=== PATIENT | female | born 1960 | race Two or more races ===

== ENCOUNTER 2018-05-04 21:28 | Emergency (ER) | payer OTHER ==
--- NOTE | 2018-05-04 22:25 | ED Physician Chart ---
ED Chief Complaint/HPI - Patient Information Date Seen:: 05/04/18 Time Seen:: 22:16 Chief Complaint:: numbness rt hand History of Present Illness:: 58 yr old female with hx fall 5 mos ago with c/o of heaadache and head shakes Allergies:: Allergies Allergy/AdvReac Type Severity Reaction Status Date / Time No Known Allergies Allergy Verified 05/04/18 22:08 Vitals:: Vital Signs - 8 hr 05/04/18 21:35 Temp 98.1 F HR 87 RR 18 BP 156/114 O2 Sat % 96 ED Review of Systems - Review of Systems General/Constitutional: No fever Skin: No skin lesions Head: Headache Eyes: No loss of vision ENT: No earache Neck: No swelling Cardio Vascular: No chest pain Pulmonary: No SOB GI: No nausea Musculoskeletal: Bone or joint pain Endocrine: No polyuria Psychiatric: No prior psych history Hematopoietic: No bruising Allergic/Immuno: No urticaria Neurological: No syncope ED Past Medical History - Past Medical History Past Medical History: No significant medical hx Family Medical History - Family Member Mother History Unknown: Yes ED Physical Exam - Physical Examination General/Constitutional: Well-developed, well-nourished Other Gen/Cons comments:: very anxious female Head: Atraumatic Eyes: Lids, conjuctiva normal Skin: Nl inspection Neck: No JVD Respiratory: Nl effort/Exclusion Cardio Vascular: RRR Other Extremities comments:: rt wrist tend rt thumb tenderness Neuro/Psych: Alert/oriented ED Assessment - Assessment General Assessment: anxiety headache sprain ED Septic Shock - . Is Septic Shock (SBP<90, OR Lactate>4 mmol\L) present?: No - <6hrs of presentation: Vital Signs: Vital Signs - 8 hr 05/04/18 21:35 Temp 98.1 F HR 87 RR 18 BP 156/114 O2 Sat % 96 ED Reassessment (Disposition) - Reassessment Reassessment:: anxiety headache sprain - Patient Disposition Discharge/Transfer:: Home Condition at Disposition:: Stable
[2018-05-04 22:31] LABS: % BASOPHILS 0.5 % (0.0-2.0); % EOSINOPHILS 2.1 % (0.0-5.0); % LYMPHOCYTES 28.5 % (20.0-50.0); % MONOCYTES 8.7 % (2.0-10.0); % NEUTROPHILS 60.2 % (40.0-80.0); EOSINOPHILE ABSOLUTE 0.2 Th/cmm (0.1-0.4); HEMATOCRIT 43.8 % (41.0-60); HEMOGLOBIN 14.3 gm/dL (12-16); LYMPHOCYTE ABSOLUTE 2.3 Th/cmm (1.5-3.0); MEAN CELL VOLUME 86.9 fl (81-100); MEAN CORPUSCULAR HEMOGLOBIN 28.4 pg (27.0-31.0); MEAN CORPUSCULAR HGB CONC 32.7 pg (28.0-36.0); MEAN PLATELET VOLUME 7.8 fl; MONOCYTE ABSOLUTE 0.7 Th/cmm (0.3-1.0); PLATELET COUNT 295 Th/cmm (150-400); RED BLOOD COUNT 5.04 Mil/cmm (3.80-5.10); RED CELL DISTRIBUTION WIDTH 12.5 % (11.5-20.0); WHITE BLOOD COUNT 8.2 Th/cmm (4.8-10.8)
[2018-05-04 22:47] LABS: ALB/GLOB RATIO 1.4 (1.0-1.8); ALBUMIN 4.2 gm/dL (3.7-5.3); ALKALINE PHOSPHATASE 63 U/L (34-104); ANION GAP 11.9 (7.0-16.0); BILIRUBIN,TOTAL 0.3 mg/dL (0.3-1.0); BUN - UREA NITROGEN 11 mg/dL (7-25); CALCIUM SERUM 9.3 mg/dL (8.6-10.3); CARBON DIOXIDE 24.9 mEq/L (21.0-31.0); CHLORIDE 106 mEq/L (98-107); CREATININE - SERUM 1.1 mg/dL (0.6-1.2); GFR AFRICAN-AMERICAN > 60.0 ml/min (>90); GFR NON AFRICAN-AMERICAN 54.6 ml/min; GLUCOSE 101 mg/dL (70-105); POTASSIUM SERUM 3.8 mEq/L (3.5-5.1); SGOT 11 U/L (13-39); SGPT/ALT 11 U/L (7-52); SODIUM SERUM 139 mEq/L (136-145); TOTAL PROTEIN,SERUM 7.3 gm/dL (6.0-8.3)
== END 2018-05-05 00:15 | disposition home or self-care (01) ==
LOC: ER 21:28
DX: S03.9XXA Sprain of joints and ligaments of unspecified parts of head, initial encounter (principal); F41.9 Anxiety disorder, unspecified; X58.XXXA Exposure to other specified factors, initial encounter; Y93.89 Activity, other specified; Y92.89 Other specified places as the place of occurrence of the external cause; Y99.8 Other external cause status
CPT/HCPCS: 36415-UA; 80053-TC; 85025-TC; Z7502